=== PATIENT | male | born 1980 | race Caucasian/White ===

== ENCOUNTER 2022-03-05 08:33 | Emergency (ER) | payer SELFPAY ==
[~2022-03-05] VITALS: Ht 171.7 cm; Wt 76.8 kg
[2022-03-05 08:35] VITALS: BP 176/79
--- NOTE | 2022-03-05 08:47 | NUR ---
PATIENT AMBULATED TO BED 7.
--- NOTE | 2022-03-05 09:00 | NUR ---
Dr. Menard evaluating patient at bedside.
[2022-03-05] MEDS ORDERED: LIDOCAINE 5% 1 EA PATCH TP SCH (09:10)
[2022-03-05] MEDS ORDERED: KETOROLAC 30 MG/ML VIAL IM ONE (09:10)
--- NOTE | 2022-03-05 09:16 | NUR ---
41 y/o male bib with c/o left mid axillary pain x3 days. Patient denies injury or trauma. Patient states "he was lifting a big roll on Monday and felt the pain to his side." Patient has 7/10 pain level with movement. Patient has been taking Tylenol for pain. Medical History: DM, HLD NKDA
[2022-03-05] MEDS ORDERED: IBUP-2213 PO (09:46)
[2022-03-05] MEDS ORDERED: LID5T TP (09:47)
[2022-03-05 10:03] VITALS: BP 165/87
--- NOTE | 2022-03-05 10:03 | NUR ---
Patient discharged with v/s stable. Written and verbal after care instructions given. Patient alert, oriented and verbalized understanding of instructions. Ambulatory with steady gait. All questions addressed prior to discharge. ID band removed. Patient advised to follow up with PMD. Rx of Ibuprofen and Lidoderm given. Opportunity to ask questions provided and answered.
--- NOTE | 2022-03-05 10:31 | NUR ---
The patient's care was reviewed and supervised by Ellie Degroot, RN, RN.
== END 2022-03-05 10:03 | disposition home or self-care (01) ==
LOC: MED 08:33
DX: S29.011A Strain of muscle and tendon of front wall of thorax, initial encounter (principal); E11.9 Type 2 diabetes mellitus without complications; E78.5 Hyperlipidemia, unspecified; Z79.899 Other long term (current) drug therapy; X50.0XXA Overexertion from strenuous movement or load, initial encounter; Y93.89 Activity, other specified; Y92.89 Other specified places as the place of occurrence of the external cause; Y99.0 Civilian activity done for income or pay
CPT/HCPCS: 96372; 99283; J1885